=== PATIENT | female | born 1940 | race Caucasian/White ===

== ENCOUNTER 2023-07-02 10:19 | Outpatient (CLI) | payer MEDICARE, SELFPAY | END 2023-07-02 10:20 | disposition home or self-care (01) | LOC: INJ CL 10:21 | PROVIDERS: PCP Student in an Organized Health Care Education/Training Program; Visit Provider Family Medicine | DX: M54.16 Radiculopathy, lumbar region (principal); M51.36 Other intervertebral disc degeneration, lumbar region | CPT/HCPCS: 62323; J0702; Q9966 ==

== ENCOUNTER 2023-12-17 08:13 | Outpatient (CLI) | payer MEDICARE, SELFPAY | END 2023-12-17 08:14 | disposition home or self-care (01) | LOC: INJ CL 08:14 | PROVIDERS: PCP Student in an Organized Health Care Education/Training Program; Visit Provider Family Medicine | DX: M54.16 Radiculopathy, lumbar region (principal); M51.36 Other intervertebral disc degeneration, lumbar region | CPT/HCPCS: 62323; J0702; Q9966 ==

== ENCOUNTER 2025-02-12 09:44 | Outpatient (CLI) | payer MEDICARE, SELFPAY ==
--- NOTE | 2025-02-12 11:32 | P.ANES_ITS ---
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
--- NOTE | 2025-02-12 11:32 | W.ANESCHARGE ---
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
== END 2025-02-12 09:45 | disposition home or self-care (01) ==
LOC: OP CLINIC 09:46
PROVIDERS: PCP Student in an Organized Health Care Education/Training Program; Visit Provider Internal Medicine Gastroenterology
DX: R13.10 Dysphagia, unspecified (principal); K21.9 Gastro-esophageal reflux disease without esophagitis; Z98.84 Bariatric surgery status
CPT/HCPCS: 00731; 43239; 88305; 88312; 88341; 88342; 99100; J2704; J3010